=== PATIENT | female | born 1980 | race Caucasian/White ===

== ENCOUNTER 2016-07-13 18:20 | Emergency (ER) | payer SELFPAY ==
[~2016-07-13] VITALS: Ht 167.6 cm; Wt 50.0 kg
[2016-07-13] MEDS ORDERED: SODIUM CHLORIDE FLUSH 10ML SYR IVF ONE (18:30)
[2016-07-13] MEDS ORDERED: SODIUM CHLORIDE 0.9% 1,000ML IVBOLUS ONE (18:30)
[2016-07-13] MEDS ORDERED: ZIPRASIDONE 20 MG INJ IM ONE ×3 (18:39→19:30)
[2016-07-13 19:07] LABS: BLOOD UREA NITROGEN 27 mg/dL (7-18)
[2016-07-13 19:13] LABS: IS PT STATUS REG ER OR PRE ER? YES
[2016-07-14 04:48] VITALS: BP 129/74
== END 2016-07-14 06:10 | disposition home or self-care (01) ==
LOC: EDBD → MERGE 18:20 → ED 23:45
DX: F32.9 Major depressive disorder, single episode, unspecified (principal); F41.1 Generalized anxiety disorder; E86.0 Dehydration
CPT/HCPCS: 36415; 80048; 82040; 84484; 84703; 85025; 93005; 96372; 99285; J3486; J7030

== ENCOUNTER 2016-08-22 13:56 | Emergency (ER) | payer SELFPAY ==
[~2016-08-22] VITALS: Ht 154.9 cm; Wt 53.8 kg
[2016-08-22 13:57] VITALS: BP 140/79
[2016-08-22] MEDS ORDERED: PHENAZOPYRIDINE 200 MG TABLET ONE (14:22)
[2016-08-22] MEDS ORDERED: PHENAZOPYRIDINE 200 MG TABLET PO ONE (14:30)
[2016-08-22 14:45] LABS: HCG UR OBC PASS
== END 2016-08-22 15:56 | disposition home or self-care (01) ==
LOC: ED 15:30
DX: N30.90 Cystitis, unspecified without hematuria (principal); F19.10 Other psychoactive substance abuse, uncomplicated
CPT/HCPCS: 81001; 81025; 87077; 87086; 87186; 99284

== ENCOUNTER 2017-03-04 09:37 | Emergency (ER) | payer OTHER ==
[~2017-03-04] VITALS: Ht 157.5 cm; Wt 55.0 kg
[2017-03-04 09:55] VITALS: BP 147/101
[2017-03-04] MEDS ORDERED: LORazepam 1MG TABLET PO ONE (10:00)
[2017-03-04] MEDS ORDERED: SODIUM CHLORIDE 0.9% 1,000ML IVBOLUS ONE (10:00)
[2017-03-04] MEDS ORDERED: LORazepam 1MG TABLET ONE (10:14)
== END 2017-03-04 10:46 | disposition home or self-care (01) ==
LOC: ED 10:06
DX: F11.10 Opioid abuse, uncomplicated (principal); F15.10 Other stimulant abuse, uncomplicated; F32.9 Major depressive disorder, single episode, unspecified
CPT/HCPCS: 99283